=== PATIENT | female | born 1940 | race Caucasian/White ===

== ENCOUNTER → 2023-10-13 07:59 | Outpatient (REF) | payer OTHER, SELFPAY | LOC: PET 07:59 | PROVIDERS: ATTENDING PHYSICIAN Internal Medicine Hematology & Oncology | DX: C34.11 Malignant neoplasm of upper lobe, right bronchus or lung (principal); C79.51 Secondary malignant neoplasm of bone | CPT/HCPCS: 78815; A9552 ==

== ENCOUNTER → 2024-01-09 11:11 | Outpatient (REF) | payer OTHER, SELFPAY | LOC: HWRCS 11:11 | PROVIDERS: ATTENDING PHYSICIAN Internal Medicine Cardiovascular Disease; FAMILY PHYSICIAN Internal Medicine | DX: R07.9 Chest pain, unspecified (principal) | CPT/HCPCS: 93306 ==

== ENCOUNTER → 2024-02-14 13:05 | Outpatient (REF) | payer OTHER, SELFPAY | LOC: PAVMRI 13:05 | PROVIDERS: ATTENDING PHYSICIAN Internal Medicine Hematology & Oncology; FAMILY PHYSICIAN Internal Medicine | DX: C79.51 Secondary malignant neoplasm of bone (principal); C34.11 Malignant neoplasm of upper lobe, right bronchus or lung | CPT/HCPCS: 72156; 72157; A9575 ==

== ENCOUNTER → 2024-02-20 11:46 | Outpatient (REF) | payer OTHER, SELFPAY | LOC: HWWDC 11:46 | PROVIDERS: ATTENDING PHYSICIAN Obstetrics & Gynecology Gynecology; FAMILY PHYSICIAN Internal Medicine | DX: Z12.31 Encounter for screening mammogram for malignant neoplasm of breast (principal) | CPT/HCPCS: 77063; 77067 ==

== ENCOUNTER → 2024-04-12 13:57 | Outpatient (REF) | payer OTHER, SELFPAY | LOC: HWRAD 13:57 | PROVIDERS: ATTENDING PHYSICIAN Nurse Practitioner Adult Health; FAMILY PHYSICIAN Internal Medicine | DX: R10.11 Right upper quadrant pain (principal) | CPT/HCPCS: 76700 ==

== ENCOUNTER 2024-05-04 06:36 | Day surgery (SDC) | payer OTHER, SELFPAY ==
[2024-05-04] VITALS (8 sets, daily range): BP systolic 120–161; BP diastolic 55–84; BMI 25.3
[2024-05-04] MEDS: NORMOSOL-R/PLASMALYTE-A 1000 IV (09:05)
[2024-05-04] MEDS: TYLENOL 1000 MG PO (09:05)
== END 2024-05-04 13:02 | disposition home or self-care (01) ==
LOC: SDS 06:36
PROVIDERS: ATTENDING PHYSICIAN Surgery
DX: K80.10 Calculus of gallbladder with chronic cholecystitis without obstruction (principal)
CPT/HCPCS: 47562; 88304

== ENCOUNTER → 2024-05-30 07:52 | Outpatient (REF) | payer OTHER, SELFPAY | LOC: PET 07:52 | PROVIDERS: ATTENDING PHYSICIAN Internal Medicine Hematology & Oncology | DX: C34.11 Malignant neoplasm of upper lobe, right bronchus or lung (principal); C79.51 Secondary malignant neoplasm of bone | CPT/HCPCS: 78815; A9552 ==

== ENCOUNTER 2024-10-14 16:57 | Observation (INO) | payer OTHER, SELFPAY ==
[2024-10-14] VITALS (15 sets, daily range): BP systolic 110–184; BP diastolic 50–80; BMI 24.8; BMI 23.8
[2024-10-14 14:01] LABS: % Basophils 0.3 % (0-2); % Eosinophils 0.8 % (0-6); % Immature Granulocytes 0.3 % (0-0.5); % Lymphocytes 11.3 % (20.5-51.1); % Monocytes 9.3 % (1.7-9.3); Absolute Eosinophils 0.1 10^3/uL (0-0.7); Absolute Lymphocytes 0.9 10^3/uL (1.2-3.4); Absolute Monocytes 0.7 10^3/uL (0.1-0.6); Absolute Neutrophils 5.8 10^3/uL (1.4-6.5); Hematocrit 37.5 % (37.0-47.0); Hemoglobin 13.3 g/dL (12.0-16.0); Mean Corp Hgb Conc. 35.5 g/dL (33.0-37.0); Mean Corpuscular Hgb 32.1 pg (27.0-31.0); Mean Corpuscular Volume 90.6 fL (81.0-99.0); Mean Platelet Volume 10.7 fL (7.4-10.4); Nucleated Red Blood Cells % 0 %; Platelet Count 144 10^3/uL (130-400); Red Blood Cell Count 4.14 10^6/uL (4.20-5.40); Red Cell Dist. Width 13.1 % (11.5-14.5); White Blood Cell Count 7.5 10^3/uL (4.8-10.8)
--- NOTE | 2024-10-14 14:09 | ED.GENMED ---
History of Present Illness
General
Chief Complaint: Chest Pain
Source: patient and family (Daughters states she was called, and drove for half hour to her, and called EMS due to her repeat)
Exam Limitations: none
Time Seen by Provider: 10/14/24 14:05
Nursing documentation reviewed up to this point in time: agreed with
History of Present Illness
History of Present Illness:
84-year-old female presents emergency department due to chest pain that occurred at 9:30 AM after she walked to her table, and sat down. She states she was sweaty, and had pain throughout her chest. It did not radiate. It feels like a constant
pressure. She took 2 nitroglycerin at home, and 162 mg of aspirin. The nitroglycerin helped. She states she still has a slight amount of tightness. She states she had an GA in 2007, but with a cardiac catheterization that was clean. She follows
with Dr. Franchesca Stiles. 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
Past History
Past History
ED Past Medical History: Cancer (Lung cancer, bone cancer), HTN, GA and Hypothyroidism
Social History
Alcohol: None
Drug: None
Living: alone
Review of Systems
Review of Systems
Allergies reviewed?: Yes
All Other Systems: Not applicable
Constitutional: Reports no symptoms
EENT: Reports no symptoms
Respiratory: Reports no symptoms
Cardiac: Reports chest pain and diaphoresis
ABD/GI: Reports no symptoms
: Reports no symptoms
Musculoskeletal: Reports no symptoms
Skin: Reports no symptoms
Neurological: Reports no symptoms
Endocrine: Reports no symptoms
Hematologic/Lymphatic: Reports no symptoms
Psychiatric: Reports no symptoms
Phy Exam
Physical Exam
Physical Exam:
Physical Exam
General: no apparent distress, not acutely ill
Neck: supple. no meningeal signs. normal posterior pharynx
Heart: s1/s2 regular rate and rhythm, no murmur. equal radial
pulses.
HEENT: Pupils equal round reactive to light, EOMI
Lungs: no acute respiratory distress. clear bilaterally
Abdomen: normal bowel sounds. not tender. no CVAT
Neuro: alert and oriented. no focal neurological deficits cranial nerves II through XII intact
Skin: no rash
Psychiatric: well kept. interactive and cooperative
Extremities: no edema. no calf tenderness. negative homans. good distal pulses
Scores
Heart Score for Chest Pain Patients
STEMI patient?: No
History: Slightly or Non-Suspicious
ECG: Normal
Age: >/= 65 years
Risk Factors: >/= 3 Risk Factors or History of CAD
Troponin: </= Normal Limit
Heart Score for Chest Pain Patients: 4
Heart Score Risk: 20.3% MACE over next 6 weeks
Course
Orders/Labs/Results
Orders:
Orders
10/14/24 Breakfast
Cholesterol Lowering
At Your Request: Full Participation
Cholesterol Lowering: Sodium, 2 Gram
10/14/24 13:34
EKG [Electrocardiogram (*1)] Urgent
Reason for Study: Chest Pain
10/14/24 13:35
EKG- Treatment ONCE
10/14/24 13:45
Complete Blood Count/With Diff Urgent
Comprehensive Metabolic Panel Urgent
Troponin I Urgent
10/14/24 14:18
Aspirin Chewable [Low Strength Aspirin] 162 mg PO NOW STA
Nitroglycerin Sublingual [Nitrostat (Sublingual)] 0.4 mg SL [id number] PRN
10/14/24 14:19
CR Chest Portable - 1 View Urgent
Comment:
Reason For Exam: chest pain
Reason Study Needs to be Portable: Patient Unstable
10/14/24 16:09
CT Chest PE Study Urgent
Comment:
Reason For Exam: chest pain, history of cancer
10/14/24 16:27
Admit/Transfer Patient As Directed
Co-Sign Provider:
Level of Care: Observation services
Assign to:: Telemetry
Physician / Group: rosa maria
Diagnosis: CP eval for ACS
Reason for Telemetry: Chest Pain syndromes
Date to Stop Telemetry: 10/16/24
Time to Stop Telemetry: 11:00
10/14/24 16:29
Code Status As Directed
Resuscitation Status: Full Code
10/14/24 21:24
Electrocardiogram (*1) Q6H
Reason for Study: Chest Pain
Comment: at admission and Q3H for total of 3, to be done with each troponin
Atorvastatin [Lipitor] 20 mg PO QPM
Nitroglycerin Sublingual [Nitrostat (Sublingual)] 0.4 mg SL [id number] PRN
10/14/24 21:24
CARDIOLOGY CONSULT Routine
Consulting Provider: Abdi Stiles
Was physician already notified: Yes
Reason for consult: CP, HX GA
Activity As Directed
Activity Level: With Assistance
INT (Intravenous Needle Therapy) As Directed
Comment: maintain peripheral IV access
Intake/ Output As Directed
Frequency: Per unit guidelines
Vital Signs As Directed
Frequency: q4h
Weight As Directed
Frequency: Daily
DX Deep Vein Thrombosis Video Routine
10/14/24 21:42
Glycohemoglobin (HgbA1c) Routine
Troponin I Q3H
Comment: at admit & Q3H for 3 total including ED draws, obtain ECG with each level
10/14/24 22:00
Amlodipine [Norvasc] 10 mg PO QPM
Enoxaparin Sodium [Lovenox] 40 mg SC QPM
Gabapentin [Neurontin] 200 mg PO HS
Lisinopril [Zestril] 40 mg PO QPM
10/15/24 00:24
Troponin I Q3H
Comment: at admit & Q3H for 3 total including ED draws, obtain ECG with each level
10/15/24 03:24
Electrocardiogram (*1) Q6H
Reason for Study: Chest Pain
Comment: at admission and Q3H for total of 3, to be done with each troponin
Troponin I Q3H
Comment: at admit & Q3H for 3 total including ED draws, obtain ECG with each level
10/15/24 Breakfast
NPO
Allow oral meds: Yes
Allow clear liquids: Sips of Clears
NPO with Ice Chips: Yes
Basic Metabolic Panel IN AM
Cardiovascular Evaluation IN AM
Complete Blood Count/No Diff IN AM
10/15/24 08:00
Aspirin Chewable [Low Strength Aspirin] 81 mg PO DAILY
Gabapentin [Neurontin] 100 mg PO BID AT 0800,1700
Metoprolol Xl [Toprol Xl] 100 mg PO DAILY
10/15/24 09:24
Electrocardiogram (*1) Q6H
Reason for Study: Chest Pain
Comment: at admission and Q3H for total of 3, to be done with each troponin
10/16/24 11:00
DC Protocol for Telemetry ONCE
Abnormal Lab Results
10/14/24
13:45
RBC 4.14 L 10^6/uL
(4.20-5.40)
MCH 32.1 H pg
(27.0-31.0)
MPV 10.7 H fL
(7.4-10.4)
Absolute Lymphs (auto) 0.9 L 10^3/uL
(1.2-3.4)
Absolute Monos (auto) 0.7 H 10^3/uL
(0.1-0.6)
Neutrophils % 78.0 H %
(42.2-75.2)
Lymphocytes % 11.3 L %
(20.5-51.1)
Glucose 118 H mg/dl
(70-99)
AST 42 H U/L
(14-36)
10/14/24 13:45
10/14/24 13:45
Vital Signs
Initial and Last Documented VS:
Initial Vital Signs
Temp Pulse Resp BP Pulse Ox
98.1 F 85 15 171/50 96
10/14/24 13:35 10/14/24 13:35 10/14/24 13:35 10/14/24 13:35 10/14/24 13:35
Last Documented Vital Signs
Temp Pulse Resp BP Pulse Ox
98.7 F 83 16 173/80 98
10/14/24 21:29 10/14/24 22:05 10/14/24 21:29 10/14/24 22:05 10/14/24 21:29
MDM/Problems Addressed
Differential Diagnosis Includes:
ACS, PE
MDM/Problems Addressed:
84-year-old female with chest pain, diaphoresis, concern for unstable angina. Initial troponin negative. EKG negative. Admit for further evaluation.
Chronic conditions affecting care: HTN, CAD and Neurological disorder
Acute Exacerbation and/or Progression of Chronic Illness: HTN and CAD
*Radiology
Radiology exam reviewed: radiology read reviewed (CT chest: Chest x-ray no acute findings)
*Pulse Oximetry
Patient hypoxic: no
*EKG
Interpreted by ED Provider?: Yes
EKG Intrepretation Date: 10/14/24
EKG Intrepretation Time: 13:36
Interpretation: normal
Comparison EKG: no comparison EKG present
Heart Rate: 81
Rate: normal
Rhythm: sinus
[place]: normal axis
Interval: normal interval
QRS Pattern: normal QRS
Ischemia: no ischemia
*Choral Teacher Interpretation
Rate: normal
Interpretation: normal
Heart Rate: 80
Rhythm: sinus
*Critical Care Note
Total Time (30-74mins, 75-104mins- exclusive of procedures): Not Applicable
Data Reviewed
Review of Other/Old Records Reveals: Records and Operative Reports (Prior cholecystectomy)
Source: records
Patient Management
Social determinants of health affecting care: Living situation
Discussion with other providers: Hospitalist and Research And Development Scientist (Dr. Urbano Stiles, road packer operator)
Escalation/DeEscalation of care consider admission/obs:
Admit indicated
ED Attending Note
-
Portions of this chart may have been created with voice recognition software.� Occasional wrong word or��sound alike� substitutions may have occurred due to the inherent limitations of voice recognition software.
Discharge Plan
Departure
Patient Disposition: Admit
Date of Disposition: 10/14/24
Time of Disposition: 15:04
Presentation/result/management discussed w/ accepting MD/DO: Hospitalist
Patient with high blood pressure during this ER visit?: No
Condition: Good
Discharge Problem:
Chest pain
Interventions
Interventions:
*Risk Screen - Suicide Last Done: 10/14/24 13:47
*General Assessment Last Done: 10/14/24 13:45
*Neglect/Abuse Screening Last Done: 10/14/24 13:47
*ED- Fall Risk Assessment Last Done: 10/14/24 13:45
*ED COVID-19 Vaccine History Last Done: 10/14/24 13:45
*Nursing Disposition Last Done: 10/14/24 21:17
ED- Cardiac Assessment Last Done: 10/14/24 19:09
Discharge Date and Time
Discharge Date/Time: 10/14/24 21:22
[2024-10-14 14:18] LABS: ALT (SGPT) 22 U/L (0-35); AST (SGOT) 42 U/L (14-36); Albumin 4.1 g/dl (3.5-5.0); Alkaline Phosphatase 82 U/L (38-126); Blood Urea Nitrogen 13 mg/dl (7-17); Calcium 9.5 mg/dl (8.4-10.2); Carbon Dioxide 26 mmol/L (22-30); Chloride 101 mmol/L (98-107); Estimated Creatinine Clearance 49 ml/min; Glucose 118 mg/dl (70-99); Potassium 4.2 mmol/L (3.5-5.1); Sodium 136 mmol/L (135-145); Total Bilirubin 0.8 mg/dl (0.2-1.3); Total Protein 6.5 g/dl (6.3-8.2); eGFR > 60.00
[2024-10-14 14:32] LABS: Troponin I < 0.012 ng/ml
[2024-10-14] MEDS: LOW STRENGTH ASPIRIN 162 MG PO (14:44)
[2024-10-14] MEDS: NITROSTAT (SUBLINGUAL) 0.4 MG SL (14:44)
--- NOTE | 2024-10-14 16:19 | HPS.HSE ---
Addendum entered and electronically signed by Maikel Khalil MD 10/14/24 20:37:
[facility] PE protocol
negative for pulmonary embolism.
Predominantly linear densities within the right upper lobe, appearance most suggestive of scarring.
Within the right middle lobe, focal area of linear and groundglass opacity, most likely scarring and/or changes from radiation therapy. Continued CT and/or PET/CT follow-up is recommended.
Moderate changes of emphysema within both lungs.
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
Focus of sclerosis within the right scapula in the region of the inferior glenoid, which is likely a treated metastatic lesion with no FDG uptake on most recent PET/CT examination.
Original Note:
Family Physician
-
Family Physician: Pratima Shepard
Chief Complaint
-
CP
History of Present Illness
84F HX OK, HTN, Lung cancer, bone cancer, Hypothyroidism sen at ER:
- acute CP at 9:30 AM after she walked to her table, and sat down.
- was sweaty, and had pain throughout her chest but radiate.
- like a constant pressure.
- took 2 nitroglycerin at home, and 162 mg of aspirin.
- NTG improved the CP
- still has a slight amount of tightness.
HX OK in 2007, but with a cardiac catheterization that was clean.
P Card: Dr. Franchesca Stiles. She takes Plavix every day due to a minor
Medical History
Past Medical History
Past Medical History: Reports HTN, Hypercholesterolemia, Hypothyroidism and OK
Past Surgical History: Reports None
Social History
Tobacco: Non-smoker
Alcohol: None
Drug: None
Family History
Family History: Not pertinent
Allergies / Home Medications
Allergies reflects when Allergies were last updated in [employer].
Home Medications with original date entered in [employer]
Allergy/Medication List:
Allergies
Allergy/AdvReac Type Severity Reaction Status Date / Time
Iodinated Contrast Media Allergy SWELLING Verified 10/14/24 14:56
[Iodinated Contrast- Oral AND CAN'T
and IV Dye] BREATHE
Home Medications
nitroglycerin 0.4 mg sublingual tablet 0.4 mg sublingual [id number] PRN chest pain 04/19/18
atorvastatin 20 mg tablet 20 mg PO QPM 05/08/18
metoprolol succinate 100 mg tablet,extended release 24 hr 100 mg PO DAILY 05/08/18
polyethylene glycol 3350 17 gram oral powder packet 17 grams PO DAILYPRN PRN constipation d/t opioids 05/08/18
docusate sodium 100 mg capsule 100 mg PO BID 05/12/18
lysine 1,000 mg tablet 1,000 mg PO DAILY 05/26/18
clopidogrel 75 mg tablet (Plavix) 75 mg PO DAILY #20 tabs 02/22/20
gabapentin 100 mg capsule 200 mg PO HS 02/22/20
denosumab 120 mg/1.7 mL (70 mg/mL) subcutaneous solution (Xgeva) 120 mg SC [id number] 04/30/24
levothyroxine 50 mcg tablet 50 mcg PO DAILY 04/30/24
pembrolizumab 25 mg/mL intravenous solution (Keytruda) 400 mg IV Q3W 04/30/24
gabapentin 100 mg capsule 100 mg PO BID 05/04/24
ibuprofen 200 mg tablet 400 mg PO Q6HPRN PRN mild pain 05/04/24
amlodipine 10 mg tablet 10 mg PO QPM 10/14/24
calcium 600 mg (as carbonate)-vitamin D3 10 mcg (400 unit) tablet (Calcium 600 + D(3)) 1 tab PO BID 10/14/24
hydromorphone 4 mg tablet 2 mg PO Q6HPRN PRN severe pain 10/14/24
lisinopril 40 mg tablet 40 mg PO QPM 10/14/24
morphine 15 mg immediate release tablet 15 mg PO Q6HPRN PRN severe pain 10/14/24
Review of Systems
-
Constitutional: Reports No Symptoms
EENT: Reports No Symptoms
Respiratory: Reports No Symptoms
Cardiac: Reports Chest Pain and Diaphoresis; Denies Palpitations or Syncope
Abdomen/GI: Reports No Symptoms
: Reports No Symptoms
Musculoskeletal: Reports No Symptoms
Skin: Reports No Symptoms
Neurological: Reports No Symptoms
Endocrine: Reports No Symptoms
Hematologic/Lymphatic: Reports No Symptoms
Psych: Reports No Symptoms
Physical Exam
Vital Signs
Vital Signs
Temp Pulse Resp BP Pulse Ox
98.1 F 72 14 110/67 96
10/14/24 13:35 10/14/24 13:50 10/14/24 13:50 10/14/24 14:49 10/14/24 13:35
Physical Exam
General: Well Developed, Well Nourished and No Apparent Distress
HEENT: NormoCephalic, Moist mucous membranes and Atraumatic
Respiratory: Clear
Cardiac: S1/S2 and Regular Rhythm; No Murmur or Rub
GI: Soft, Non Tender, Non Distended and Normal Bowel Sounds; No Organomegaly
Rectal: Deferred by Provider
Musculoskeletal: No Clubbing, No Cyanosis and No Edema
Skin: No Rash
Neuro: Nonfocal/grossly intact
Laboratory Results
-
10/14/24 13:45
10/14/24 13:45
Laboratory Results
Total Bilirubin 0.8 mg/dl (0.2-1.3) 10/14/24 13:45
AST 42 U/L (14-36) H 10/14/24 13:45
ALT 22 U/L (0-35) 10/14/24 13:45
Alkaline Phosphatase 82 U/L (38-126) 10/14/24 13:45
Troponin I < 0.012 ng/ml 10/14/24 13:45
Data Reviewed
-
CT Scan: Other (pending CTC PE protocol )
Medical Tests (Nuc Med, Echo, EKG etc): Report Reviewed by me
Lab Data: Labs Reviewed by me
Old Records: Reviewed
Impression/Plan
-
Selected Entries
10/14/24
13:35 10/14/24
13:50 10/14/24
14:49
Temp 98.1 F
Blood pressure 171/50 152/66 110/67
Laboratory Tests
10/14/24
13:45
WBC 7.5
Hgb 13.3
Plt Count 144
Creatinine 0.7
eGFR > 60.00
Troponin I < 0.012
CXR
No evidence of active cardiopulmonary disease.
EKG
NORMAL SINUS RHYTHM
NONSPECIFIC ST ABNORMALITY
ABNORMAL ECG
NO PREVIOUS ECGS AVAILABLE
01/09/24 TTE
LVEF 55-60
Normal right ventricular size and function
Trace mitral regurgitation.
Aortic sclerosis without stenosis
Estimated pulmonary artery pressure of 30-35 mmHg.
ASSESSMENT & PLAN
Acute CP improved with SL NTG
now CP free
NEG TPNI
Unchanged EKG
HX [place] (2007) : cardiac catheterization that was clean.
HLD - compliance with OP Statin
- repeat EKG
- no indication for Heparin gtt
- c/w ASA
- PRN SL NTG
- c/w Metoprolol XL
- c/w Atorvastatin 20 qpm
- ECHO in AM
- [facility] Card consulted
HX minor CVA on chr Plavix
- c/w [employer] Plavix
HX lung CA
- on Keytruda
- evaluate for PE as well as cancer progression
- await CTA of chest with PE protocol
Benign HTN
- c/w [employer] Amlodipine , Lisinopril
Hypothyroid
- stable
- c/w [employer] LT4 50 mcg daily
DVT Px: LMWH
Full code
Obs TLM
[2024-10-14] MEDS: NORVASC 10 MG PO (22:04)
[2024-10-14] MEDS: ZESTRIL 40 MG PO (22:05)
[2024-10-14] MEDS: NEURONTIN 200 MG PO (22:05)
[2024-10-14] MEDS: LIPITOR 20 MG PO (22:05)
[2024-10-14] MEDS: LOVENOX 40 MG SC (22:06)
[2024-10-14 22:16] LABS: Troponin I < 0.012 ng/ml
[2024-10-14] MEDS: DILAUDID 2 MG PO (22:29)
--- NOTE | 2024-10-14 23:27 | PTCARENOTE ---
Patient arrived to unit from ED via stretcher. Patient able to safely ambulate into room 337-1 on . Patient AAOx3 and able to make needs known. No c/o chest pain. C/o chronic back pain. See MAR. Daughter at bedside during admission. NPO at
midnight. Oriented to unit. Call bhardwaj within reach. Call bhardwaj within reach. Plan of care ongoing.
[2024-10-15 01:38] LABS: Troponin I < 0.012 ng/ml
[2024-10-15 03:55] VITALS: BP 130/60
[2024-10-15 04:35] LABS: Hematocrit 33.6 % (37.0-47.0); Hemoglobin 11.6 g/dL (12.0-16.0); Mean Corp Hgb Conc. 34.5 g/dL (33.0-37.0); Mean Corpuscular Hgb 32.3 pg (27.0-31.0); Mean Corpuscular Volume 93.6 fL (81.0-99.0); Mean Platelet Volume 10.7 fL (7.4-10.4); Platelet Count 140 10^3/uL (130-400); Red Blood Cell Count 3.59 10^6/uL (4.20-5.40); Red Cell Dist. Width 13.2 % (11.5-14.5); White Blood Cell Count 4.8 10^3/uL (4.8-10.8)
[2024-10-15 04:46] LABS: Blood Urea Nitrogen 12 mg/dl (7-17); Calcium 8.9 mg/dl (8.4-10.2); Carbon Dioxide 27 mmol/L (22-30); Chloride 105 mmol/L (98-107); Estimated Creatinine Clearance 49 ml/min; Glucose 88 mg/dl (70-99); HDL Cholesterol 38 mg/dl; LDL Cholesterol, Calculated 46 mg/dl; Potassium 3.7 mmol/L (3.5-5.1); Sodium 138 mmol/L (135-145); Total Cholesterol 102 mg/dl (50-199); Triglyceride 91 mg/dl (10-149); Very Low Density Lipoprotein 18 mg/dl (0-30); eGFR > 60.00
[2024-10-15 04:59] LABS: Troponin I < 0.012 ng/ml
[2024-10-15 06:00] VITALS: BMI 23.8
[2024-10-15 07:40] VITALS: BP 139/67
[2024-10-15] MEDS: NEURONTIN 100 MG PO ×2 (08:18→17:59)
[2024-10-15] MEDS: LOW STRENGTH ASPIRIN 81 MG PO (08:18)
[2024-10-15] MEDS: TOPROL XL 100 MG PO (08:18)
[2024-10-15 09:09] LABS: Glycohemoglobin (HgbA1c) 5.4 % (4.0-5.6)
[2024-10-15 11:08] VITALS: BP 137/66
--- NOTE | 2024-10-15 12:28 | W.PN.HOSP.TC ---
Today's Communication/Plan
-
Resume diet
Cardiology consult
Assessment / Plan
Assessment / Plan
Gen-AAOx3, NAD
HEENT-NC, AT, anicteric, clear oral mm
Neck-supple
CV-reg, no M, +S1/S2
Lungs-clear B/L
Abd-soft, NT, ND
Ext-no edema
Musculoskeletal-no cyanosis, clubbing
Skin-warm and dry
Neuro-grossly non-focal
Psych-calm, cooperative
Atypical chest pain -doubt ACS. Troponins negative. EKG unremarkable. She states that on a daily basis [facility] without exertional chest pain or shortness of breath. The chest pain that
brought her to the hospital occurred at rest.
CT chest on admission negative for pulmonary embolism. Does show some scarring. Moderate changes of emphysema.
Await cardiology input. Currently n.p.o., resume diet if okay with cardiology.
Reportedly had a myocardial infarction in 2007. Cardiac catheterization at that time was normal. Records report coronary spasm.
Hyperlipidemia -atorvastatin.
History of stroke
History of lung cancer
Essential hypertension -stable.
Hypothyroidism -levothyroxine.
Full code
Anticipated Discharge: Within 24 hours
Subjective/Interval History
-
Date of Service: October 15, 2024
Patient seen and examined. No complaints. Denies chest pain.
Objective Data
-
Labs:
Laboratory Results
10/15/24
04:04
WBC 4.8
Hgb 11.6 L
Hct 33.6 L
Plt Count 140
Sodium 138
Potassium 3.7
Chloride 105
Carbon Dioxide 27
BUN 12
Creatinine 0.7
Glucose 88
Calcium 8.9
Vital Signs:
Vital Signs
Temp Pulse Resp BP Pulse Ox
98.2 F 66 14 137/66 95
10/15/24 11:08 10/15/24 11:08 10/15/24 11:08 10/15/24 11:08 10/15/24 11:08
I&O
10/14/24 10/15/24 10/16/24
06:59 06:59 06:59
Intake Total 480 / 480
Balance 480 / 480
Review of Systems
-
History Source: Patient
All other systems: Reviewed and negative
--- NOTE | 2024-10-15 12:36 | CON.CAR ---
Addendum entered and electronically signed by Hakeem Carvajal MD 10/15/24 19:09:
84-year-old woman suspected to have vasospastic angina in the mid with no obstructive CAD, admitted with chest pain, normal EKG and normal troponins. Had relief with nitroglycerin but was very hypertensive at admission
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
137/66, pulse 66, respiratory 14, weight is 60.8 kg, stable, if accurate down 2.8 kg since admission, no acute distress, eating lunch, head neck exam unremarkable, lungs relatively clear, suspected mitral regurgitation murmur, JVD okay, abdomen
benign extremities without substantial edema
Hemoglobin 11.6, white count 4.8, platelets 140, potassium is 3.7, BUN and creatinine are 12 and 0.7, AST is 42, troponin is undetectable,
Chest x-ray: Scoliosis, cardiomegaly, intramedullary ravi in the right humerus
ECG sinus rhythm, normal
CT scan: Negative for pulmonary embolus, parenchymal scarring, radiation changes, COPD, treated sclerotic scapular lesion
Echo 10/15/2024: EF 55-60%, no LVH, trace mitral regurgitation, MAC, aortic sclerosis without stenosis, trace aortic regurgitation
Impression:
Chest pain
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
Hypertension
Hypercholesterolemia
Hypothyroidism
Prior CVA
Metastatic lung cancer
Plan:
The cause of her chest pain is unclear. She feels that this was somewhat different than symptoms that she had at the time of diagnosis of vasospastic angina. It is conceivable that symptoms do represent microvascular/vasospastic angina, but other
entities such as hypertension, esophageal spasm, chest wall discomfort/musculoskeletal etiologies also need to be considered. No real evidence that this is metastatic disease.
She had some relief with nitrates. Will add isosorbide mononitrate.
Her cholesterol is excellent. Blood pressure is currently well-controlled
Observe overnight and if stable, would be suitable for discharge.
Current medical regimen seems appropriate.
We will set up PET CT scan.
Original Note:
Consultation
Consultation Request
Date/Time Consultation Requested: 10/14/24 at 2124
Date/Time Consultation Performed: 10/15/24 at 1701
Requesting Provider: Dr. Elliott
Performing Provider: Dr. JUDY Carvajal
Reason for Consultation: Chest pain better with NTG SL, possible h/o coronary spasm
Medical History
-
History of Present Illness:
Patient came to ER yesterday after an episode of CP at home and cardiology is now consulted. Patient says she woke up in her usual state of health on Tuesday morning and then walked downstairs and sat down at the kitchen table when she had the
sudden onset of severe bandlike chest tightness in her upper chest. It is unlike any pain she is ever felt before. She was able to stand up and make her way to NTG SL tablets that she has not take 1 tablet with some relief after a few moments.
Patient then tried to lay down on a sofa and the CP returned so she took another NTG SL x 1 and again had some relief. She called her daughter who then drove to her house and together they called 911. Patient feels that the chest pain was
improving by the time paramedics arrived, but it sounds as though in the ER she was still having a lower level of chest pain so she was given a 3rd NTG SL which she reports made her pain-free and no recurrence of pain since admission. Despite
prolonged pain troponin has been serially undetectable. ECG without acute ischemic change. Patient says that she is up and down the stairs in her home and was walking around a store for close to 2 hours on both Tuesday and again Tuesday without
any symptoms. Patient does have a history of a NSTEMI back in 2004 and at that time the patient was having symptoms of unstable angina and had a mildly positive troponin, but during cardiac catheterization she had nonobstructive CAD and while there
was no clear evidence of spasm seen during catheterization it was felt that spasm could be a possible explanation for symptoms. The last ischemic evaluation was a Persantine nuclear stress test in 2007 in the setting of chest pain and serially
undetectable troponin levels. Patient was later diagnosed with lung cancer and bony metastatic lesions, but she says this pain is completely different. Patient also had cholecystectomy 05/2024, but reports having no symptoms leading up to that.
PMH:
h/o NSTEMI possibly due to coronary spasm 2004
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
h/o branch retinal artery occlusion managed with chronic Plavix 02/22/20
HTN
Hyperlipidemia
h/o right lung cancer
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
Past Medical History
Past Medical History: Other (in HPI)
Past Surgical History: Appendectomy, Cholecystectomy (05/2024) and Orthopedic
Social History
Tobacco: Former Smoker
Alcohol: None
Drug: None
Personal:
Living: Alone
Family History
Family History: Cancer, Diabetes and Other (CHF)
Allergies / Home Medications
Allergy/AdvReac Type Severity Reaction Status Date / Time
Iodinated Contrast Media Allergy SWELLING Verified 10/14/24 14:56
[Iodinated Contrast- Oral AND CAN'T
and IV Dye] BREATHE
�Medication �Instructions �Recorded �Confirmed �Type
nitroglycerin 0.4 mg sublingual 0.4 mg sublingual [id number] PRN 04/19/18 10/14/24 History
tablet chest pain
atorvastatin 20 mg tablet 20 mg PO QPM High Cholesterol 05/08/18 10/14/24 History
metoprolol succinate 100 mg 100 mg PO DAILY Blood Pressure 05/08/18 10/14/24 History
tablet,extended release 24 hr
polyethylene glycol 3350 17 gram 17 grams PO DAILYPRN PRN 05/08/18 10/14/24 History
oral powder packet constipation d/t opioids
docusate sodium 100 mg capsule 100 mg PO BID 05/12/18 10/14/24 Rx
lysine 1,000 mg tablet 1,000 mg PO DAILY Supplement 05/26/18 10/14/24 History
clopidogrel 75 mg tablet (Plavix) 75 mg PO DAILY #20 tabs 02/22/20 10/14/24 Rx
gabapentin 100 mg capsule 200 mg PO HS Pain 02/22/20 10/14/24 History
denosumab 120 mg/1.7 mL (70 mg/mL) 120 mg SC [id number] Bone-Modifying 04/30/24 10/14/24 History
subcutaneous solution (Xgeva) Agent;
levothyroxine 50 mcg tablet 50 mcg PO DAILY Thyroid 04/30/24 10/14/24 History
pembrolizumab 25 mg/mL intravenous 400 mg IV Q3W Antineoplastic Agent 04/30/24 10/14/24 History
solution (Keytruda)
gabapentin 100 mg capsule 100 mg PO BID Pain 05/04/24 10/14/24 History
ibuprofen 200 mg tablet 400 mg PO Q6HPRN PRN mild pain 05/04/24 10/14/24 History
amlodipine 10 mg tablet 10 mg PO QPM Blood Pressure 10/14/24 10/14/24 History
calcium 600 mg (as 1 tab PO BID Supplement 10/14/24 10/14/24 History
carbonate)-vitamin D3 10 mcg (400
unit) tablet (Calcium 600 + D(3))
hydromorphone 4 mg tablet 2 mg PO Q6HPRN PRN severe pain 10/14/24 10/14/24 History
lisinopril 40 mg tablet 40 mg PO QPM Blood Pressure 10/14/24 10/14/24 History
morphine 15 mg immediate release 15 mg PO Q6HPRN PRN severe pain 10/14/24 10/14/24 History
tablet
Review of Systems
-
History Source: Patient
All other systems: Negative unless noted
Physical Exam
Vital Signs
Temp Pulse Resp BP Pulse Ox
98.2 F 66 14 137/66 95
10/15/24 11:08 10/15/24 11:08 10/15/24 11:08 10/15/24 11:08 10/15/24 11:08
GEN: NAD, AAOx3
HEENT: EOMI, MMM
LUNGS: RA. CTA B/L, no wheeze
CV: SR on tele. Reg, S1/S2, no murmur
ABD: soft, BS+, NT, ND
EXT: No clubbing, cyanosis, lesions or edema B/L
NEURO: Gross non-focal
SKIN: Warm, dry and pink. No rash
Lab Results
10/15/24 04:04
10/15/24 04:04
Troponin I < 0.012 ng/ml 10/15/24 04:04
Impression / Plan
-
PCP: [facility] [employer]
Card: Dr. Franchesca Stiles
Impression:
Admitted with chest pain 10/14/24
Chest pain, relieved with NTG SL
h/o NSTEMI possibly due to coronary spasm 2004
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
h/o branch retinal artery occlusion managed with chronic Plavix 02/22/20
HTN
Hyperlipidemia
h/o right lung cancer
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
Echo 01/09/2024: EF 55 to 60%, normal diastolic function, normal RV size and function, trace MR, aortic sclerosis without stenosis, no aortic regurgitation compared to echo 05/14/2022 there is no change
Plan:
-Patient came to ER yesterday after an episode of CP at home and cardiology is now consulted. Patient says she woke up in her usual state of health on Tuesday morning and then walked downstairs and sat down at the kitchen table when she had the
sudden onset of severe bandlike chest tightness in her upper chest. It is unlike any pain she is ever felt before. She was able to stand up and make her way to NTG SL tablets that she has not take 1 tablet with some relief after a few moments.
Patient then tried to lay down on a sofa and the CP returned so she took another NTG SL x 1 and again had some relief. She called her daughter who then drove to her house and together they called 911. Patient feels that the chest pain was
improving by the time paramedics arrived, but it sounds as though in the ER she was still having a lower level of chest pain so she was given a 3rd NTG SL which she reports made her pain-free and no recurrence of pain since admission. Despite
prolonged pain troponin has been serially undetectable. ECG without acute ischemic change. Patient says that she is up and down the stairs in her home and was walking around a store for close to 2 hours on both Tuesday and again Tuesday without
any symptoms. Patient does have a history of a NSTEMI back in 2004 and at that time the patient was having symptoms of unstable angina and had a mildly positive troponin, but during cardiac catheterization she had nonobstructive CAD and while there
was no clear evidence of spasm seen during catheterization it was felt that spasm could be a possible explanation for symptoms. The last ischemic evaluation was a Persantine nuclear stress test in 2007 in the setting of chest pain and serially
undetectable troponin levels. Patient was later diagnosed with lung cancer and bony metastatic lesions, but she says this pain is completely different. Patient also had cholecystectomy 05/2024, but reports having no symptoms leading up to that.
-ECG reviewed by me shows SR without acute ST changes.
-Patient with severe CP that was relieved with NTG SL x 3 doses total and has not recurred. Troponins serially undetectable despite prolonged pain. This pain is unlike pain she has experienced before.
-Patient was previously felt to have a NSTEMI back in 2004, but at that time had mildly elevated troponin levels.
-We made a plan to check echo, EF was preserved without WMA by last echo 01/09/2024. Echo ordered by me
-Will start Imdur ER 30 mg daily
-Will arrange for an outpatient PET stress test
-Anticipate discharge to home in AM if otherwise stable
[2024-10-15] MEDS: IMDUR (EXTENDED RELEASE) 30 MG PO (14:06)
[2024-10-15 15:05] VITALS: BP 130/68
--- NOTE | 2024-10-15 16:05 | CM ---
Met with patient at bedside; initial assessment completed
Pharm[facility]: [facility] form explained; signed @ 1600
Patient lives alone in 2 story home; 2 steps to enter; railing on stairs; powder room 1st floor; bedroom and full bath 2nd floor
PLOF: reported she is independent with ADLs and ambulation; drives
NO SNF or Home Health utilization history
Daughter will transport home
Discharge plan to be determined; CM will monitor and support accordingly
[2024-10-15] MEDS: ZESTRIL 40 MG PO (17:59)
[2024-10-15] MEDS: NORVASC 10 MG PO (17:59)
[2024-10-15] MEDS: LIPITOR 20 MG PO (17:59)
[2024-10-15] MEDS: LOVENOX 40 MG SC (18:00)
[2024-10-15 19:30] VITALS: BP 119/58
[2024-10-15] MEDS: DILAUDID 2 MG PO (22:27)
[2024-10-15] MEDS: NEURONTIN 200 MG PO (22:28)
[2024-10-15 23:20] VITALS: BP 127/54
[2024-10-16 03:45] VITALS: BP 124/70
[2024-10-16 06:00] VITALS: BMI 23.8
[2024-10-16 07:19] VITALS: BP 119/63
[2024-10-16] MEDS: IMDUR (EXTENDED RELEASE) 30 MG PO (09:31)
[2024-10-16] MEDS: NEURONTIN 100 MG PO (09:31)
[2024-10-16] MEDS: TOPROL XL 100 MG PO (09:31)
[2024-10-16] MEDS: LOW STRENGTH ASPIRIN 81 MG PO (09:31)
--- NOTE | 2024-10-16 11:00 | W.PN.HOSP.TC ---
Today's Communication/Plan
-
Discharge
Assessment / Plan
Assessment / Plan
Gen-AAOx3, NAD
HEENT-NC, AT, anicteric, clear oral mm
Neck-supple
CV-reg, no M, +S1/S2
Lungs-clear B/L
Abd-soft, NT, ND
Ext-no edema
Musculoskeletal-no cyanosis, clubbing
Skin-warm and dry
Neuro-grossly non-focal
Psych-calm, cooperative
Atypical chest pain -doubt ACS. Troponins negative. EKG unremarkable. She states that on a daily basis she walks for about 2 hours in [employer] while pushing a shopping cart without exertional chest pain or shortness of breath. The chest pain that
brought her to the hospital occurred at rest.
CT chest on admission negative for pulmonary embolism. Does show some scarring. Moderate changes of emphysema.
Reportedly had a myocardial infarction in 2007. Cardiac catheterization at that time was normal. Records report coronary spasm.
Isosorbide mononitrate initiated by cardiology.
Plan for outpatient PET/CT scan. Follow-up with cardiology.
Hyperlipidemia -atorvastatin.
History of stroke
History of lung cancer
Essential hypertension -stable.
Hypothyroidism -levothyroxine.
Full code
Dispo -medically stable for discharge home today. Discussed with cardiology. Outpatient follow-up.
35 minutes spent in discharge process.
Anticipated Discharge: Today
Subjective/Interval History
-
Date of Service: October 16, 2024
Patient seen and examined. No complaints. Denies chest pain.
Objective Data
-
Vital Signs:
Vital Signs
Temp Pulse Resp BP Pulse Ox
97.7 F 71 16 119/63 98
10/16/24 07:19 10/16/24 09:31 10/16/24 07:19 10/16/24 09:31 10/16/24 07:19
I&O
10/15/24 10/16/24 10/17/24
06:59 06:59 06:59
Intake Total 480 / 480 1200 / 1200
Balance 480 / 480 1200 / 1200
Review of Systems
-
History Source: Patient
All other systems: Reviewed and negative
--- NOTE | 2024-10-16 11:06 | W.DS.TRANS ---
DC Summary - [employer]
-
Discharge Instructions:
Discharge Diagnosis/Procedures Chest pain
Diet Low Cholesterol,Low Fat
Activity As tolerated
Driving Restrictions As prior to admission
Bathing Restrictions None
Instructions:
Stand-Alone Forms:
Changes to Home Medications: No
Discharge Medications:
DC Medications w/original date entered in [email or web address]
nitroglycerin 0.4 mg sublingual tablet 0.4 mg sublingual [id number] PRN chest pain 04/19/18
atorvastatin 20 mg tablet 20 mg PO QPM High Cholesterol 05/08/18
metoprolol succinate 100 mg tablet,extended release 24 hr 100 mg PO DAILY Blood Pressure 05/08/18
polyethylene glycol 3350 17 gram oral powder packet 17 grams PO DAILYPRN PRN constipation d/t opioids 05/08/18
docusate sodium 100 mg capsule 100 mg PO BID 05/12/18
lysine 1,000 mg tablet 1,000 mg PO DAILY Supplement 05/26/18
clopidogrel 75 mg tablet (Plavix) 75 mg PO DAILY #20 tabs 02/22/20
gabapentin 100 mg capsule 200 mg PO HS Pain 02/22/20
denosumab 120 mg/1.7 mL (70 mg/mL) subcutaneous solution (Xgeva) 120 mg SC [id number] Bone-Modifying Agent; 04/30/24
levothyroxine 50 mcg tablet 50 mcg PO DAILY Thyroid 04/30/24
pembrolizumab 25 mg/mL intravenous solution (Keytruda) 400 mg IV Q3W Antineoplastic Agent 04/30/24
gabapentin 100 mg capsule 100 mg PO BID Pain 05/04/24
ibuprofen 200 mg tablet 400 mg PO Q6HPRN PRN mild pain 05/04/24
amlodipine 10 mg tablet 10 mg PO QPM Blood Pressure 10/14/24
calcium 600 mg (as carbonate)-vitamin D3 10 mcg (400 unit) tablet (Calcium 600 + D(3)) 1 tab PO BID Supplement 10/14/24
hydromorphone 4 mg tablet 2 mg PO Q6HPRN PRN severe pain 10/14/24
lisinopril 40 mg tablet 40 mg PO QPM Blood Pressure 10/14/24
morphine 15 mg immediate release tablet 15 mg PO Q6HPRN PRN severe pain 10/14/24
isosorbide mononitrate 30 mg tablet,extended release 24 hr 30 mg PO DAILY #30 tabs 10/16/24
Home Medication Changes
Pending Results: No
[2024-10-16 11:24] VITALS: BP 143/73
[2024-10-16] MEDS: DILAUDID 2 MG PO (11:32)
--- NOTE | 2024-10-16 12:33 | CM ---
CM reviewed chart and noted dc order
No dc needs noted
Discharge Disposition- home, no needs
== END 2024-10-16 12:32 | disposition home or self-care (01) ==
LOC: 3 WEST ACU 16:57
PROVIDERS: Emergency Medicine; ADMITTING PHYSICIAN Internal Medicine; ATTENDING PHYSICIAN Hospitalist; EMERGENCY PHYSICIAN Emergency Medicine; FAMILY PHYSICIAN Internal Medicine; OTHER PHYSICIAN Internal Medicine Cardiovascular Disease
DX: R07.9 Chest pain, unspecified (principal); R94.31 Abnormal electrocardiogram [ECG] [EKG]; I10 Essential (primary) hypertension; I25.119 Atherosclerotic heart disease of native coronary artery with unspecified angina pectoris; J43.9 Emphysema, unspecified; R61 Generalized hyperhidrosis; R29.818 Other symptoms and signs involving the nervous system; I70.0 Atherosclerosis of aorta; E78.00 Pure hypercholesterolemia, unspecified; M41.9 Scoliosis, unspecified; I34.81 Nonrheumatic mitral (valve) annulus calcification; E03.9 Hypothyroidism, unspecified; I25.2 Old myocardial infarction; Z85.830 Personal history of malignant neoplasm of bone; Z85.118 Personal history of other malignant neoplasm of bronchus and lung; Z79.02 Long term (current) use of antithrombotics/antiplatelets; Z86.73 Personal history of transient ischemic attack (TIA), and cerebral infarction without residual deficits; Z90.49 Acquired absence of other specified parts of digestive tract; Z92.3 Personal history of irradiation; Z91.041 Radiographic dye allergy status; Z79.890 Hormone replacement therapy; Z79.899 Other long term (current) drug therapy; Z87.891 Personal history of nicotine dependence; Z83.3 Family history of diabetes mellitus; Z82.49 Family history of ischemic heart disease and other diseases of the circulatory system; Z60.2 Problems related to living alone
CPT/HCPCS: 71045; 71275; 80048; 80053; 80061; 83036; 84484; 85025; 85027; 93005; 93306; 99285; G0378; Q9967

== ENCOUNTER → 2024-10-23 13:44 | Outpatient (REF) | payer OTHER, SELFPAY | LOC: PET 13:44 | PROVIDERS: ATTENDING PHYSICIAN Physician Assistant | DX: R07.9 Chest pain, unspecified (principal); Z85.118 Personal history of other malignant neoplasm of bronchus and lung | CPT/HCPCS: 78431; A9555; J2785 ==

== ENCOUNTER → 2024-12-06 08:00 | Outpatient (REF) | payer OTHER, SELFPAY | LOC: PET 08:00 | PROVIDERS: ATTENDING PHYSICIAN Internal Medicine Hematology & Oncology | DX: C34.11 Malignant neoplasm of upper lobe, right bronchus or lung (principal) | CPT/HCPCS: 78815; A9552 ==

== ENCOUNTER → 2025-04-04 13:18 | Outpatient (REF) | payer OTHER, SELFPAY | LOC: HWWDC 13:18 | PROVIDERS: ATTENDING PHYSICIAN Obstetrics & Gynecology Gynecology; FAMILY PHYSICIAN Internal Medicine | DX: Z12.31 Encounter for screening mammogram for malignant neoplasm of breast (principal) | CPT/HCPCS: 77063; 77067 ==

== ENCOUNTER → 2025-05-23 08:38 | Outpatient (REF) | payer OTHER, SELFPAY | LOC: PET 08:38 | PROVIDERS: ATTENDING PHYSICIAN Internal Medicine Hematology & Oncology | DX: C34.11 Malignant neoplasm of upper lobe, right bronchus or lung (principal) | CPT/HCPCS: 78815; A9552 ==